=== PATIENT | male | born 1990 | race Caucasian/White ===

== ENCOUNTER 2023-05-19 14:42 | Outpatient (CLI) | payer OTHER | END 2023-05-19 14:43 | disposition home or self-care (01) | LOC: SCSRAD 14:42 | PROVIDERS: ATTEND Internal Medicine | DX: M25.561 Pain in right knee (principal); M25.461 Effusion, right knee ==

== ENCOUNTER 2024-12-02 07:34 | Outpatient (CLI) | payer OTHER | END 2024-12-02 07:35 | disposition home or self-care (01) | LOC: ULT 07:34 | PROVIDERS: ATTEND Student in an Organized Health Care Education/Training Program | DX: F10.90 Alcohol use, unspecified, uncomplicated (principal); K82.8 Other specified diseases of gallbladder | CPT/HCPCS: 76700 ==